=== PATIENT | male | born 1995 | race Hispanic/Latino ===

== ENCOUNTER 2017-06-25 13:23 | Emergency (ER) | payer SELFPAY | END 2017-06-25 14:28 | disposition home or self-care (01) | LOC: EDH 13:23 | DX: S43.81XA Sprain of other specified parts of right shoulder girdle, initial encounter (principal); Z87.891 Personal history of nicotine dependence; X50.0XXA Overexertion from strenuous movement or load, initial encounter; Y93.89 Activity, other specified; Y92.098 Other place in other non-institutional residence as the place of occurrence of the external cause; Y99.8 Other external cause status ==